=== PATIENT | male | born 2000 | race Caucasian/White ===

== ENCOUNTER 2023-05-05 17:22 | Emergency (ER) | payer BC ==
[~2023-05-05] VITALS: Ht 182.9 cm; Wt 68.0 kg
[2023-05-05] MEDS ORDERED: FAMO-131 PO (17:59)
[2023-05-05 18:04] VITALS: BP 105/70; TEMP 98.3; O2SAT 99
== END 2023-05-05 18:00 | disposition home or self-care (01) ==
LOC: ER 17:26
DX: R53.83 Other fatigue (principal)